=== PATIENT | female | born 1960 | race African-American/Black ===

== ENCOUNTER 2018-11-08 20:48 | Inpatient (IN) | payer OTHER ==
[2018-11-08 21:36] LABS: #Basophils 0.1 thou/uL (0.0-0.2); #Eosinphils 0.1 thou/uL (0.0-0.7); #Lymphocytes 2.1 thou/uL (1.20-3.40); #Neutrophils 10.9 thou/uL (1.40-6.50); %Basophils 0.4 % (0.0-1.0); %Eosinophils 0.4 % (0.0-10.0); %Lymphocytes 15.2 % (21.0-51.0); %Monocytes 6.8 % (0.0-10.0); %Neutrophils 77.2 % (42.0-75.0); Hemoglobin 11.4 g/dL (12.0-16.0); Mean Corpuscular HGB CONC 33.3 g/dL (32.0-36.0); Mean Corpuscular Hemoglobin 25.7 pg (27.0-31.0); Mean Corpuscular Volume 77.2 fL (78.0-98.0); Platelet Count 268 thou/uL (130-400); RBC Distribution Width 14.2 % (11.5-14.5); Red Blood Cell (RBC) Count 4.41 mill/uL (4.20-5.40); White Blood Cell (WBC) Count 14.1 thou/uL (4.8-10.8)
[2018-11-08 21:48] LABS: ALT (SGPT) 24 U/L (8-55); AST (SGOT) 78 U/L (5-34); Albumin 3.9 g/dL (3.5-5.0); Alkaline Phosphatase 91 U/L (40-110); Anion Gap 18 mmol/L (10-20); BUN (Urea Nitrogen) 19 mg/dL (9.8-20.1); Bilirubin, Total 0.4 mg/dL (0.2-1.2); Calc. Creatinine Clearance 0 mL/min (70-130); Carbon Dioxide 17 mmol/L (22-29); Chloride 107 mmol/L (98-107); Estimated GFR-MDRD 33; Globulin 2.8 g/dL (2.4-3.5); Glucose 120 mg/dL (70-105); Potassium 3.1 mmol/L (3.5-5.1); Protein, Total 6.7 g/dL (6.0-8.3); Sodium 139 mmol/L (136-145)
[2018-11-08 21:49] LABS: Acetaminophen Less than 6.0 mcg/mL (10.0-30.0); Alcohol Less than 10 mg/dL (Less than 10); Salicylate Less than 8.0 mg/dL (15.0-30.0)
[2018-11-08 21:52] LABS: Bacteria/HPF None Seen HPF (None Seen); Bilirubin Negative (Negative); Blood, Urine Negative (Negative); Clarity Clear (Clear); Glucose, Urine (Dipstick) Normal (Negative); Leukocyte Negative Leu/uL (Negative); Nitrite Negative (Negative); Protein, Urine (Dipstick) 70 mg/dL (Neg-Trace); RBC/HPF 0-3 HPF (0-3); Squamous Epithelial 0-3 HPF (0-3); WBC/HPF 0-3 HPF (0-3)
[2018-11-08 21:55] LABS: Amphetamine Not Detected (NotDetected); Barbiturates Screen Not Detected (NotDetected); Benzodiazepine Screen Not Detected (NotDetected); Cocaine Metabolite Screen Not Detected (NotDetected); Medtox Control Line Valid? VALID (VALID); Medtox Reader # READER 4; Methadone Not Detected (NotDetected); Methamphetamine Not Detected (NotDetected); Opiate Screen Not Detected (NotDetected); Oxycodone Screen Not Detected (NotDetected); Phencyclidine (PCP) Not Detected (NotDetected); THC/Cannabinoid Screen Detected (NotDetected); Tricyclic Screen Not Detected (NotDetected)
[2018-11-08] MEDS ORDERED: Ondansetron PF 4 MG/2 ML Vial ONE (22:16)
[2018-11-08] MEDS ORDERED: Potassium Chloride 20 MEQ TAB ONE (22:16)
--- NOTE | 2018-11-08 22:44 | CT ---
CT Brain WO Con HISTORY: Altered mental status. COMPARISON: 05/26/2004 study. FINDINGS: The ventricular and cisternal system shows mild atrophy. Chronic white matter changes are s een with old appearing lacunar infarct on the right. There are no signs of intracerebral hemorrhage or extra-axial fluid collections. The mastoid air cells and visualized sinuses are clear. IMPRESSION: No acute intracranial abnormalities.
[2018-11-08] MEDS ORDERED: Aspirin 300 MG Suppository ONE (22:55)
[2018-11-08 23:49] LABS: CKMB 16.5 ng/mL (0-6.6)
[2018-11-09 00:58] VITALS: BMI 24.7
--- NOTE | 2018-11-09 05:32 | PDOC.HHP ---
Hospitalist HPI - History of Present Illness Agitation, altered mental status History of Present Illness: Patient is a 58 year old female with PMH HTN, hyperlipidemia, distant stroke with residual R sided weakness who was brought to hospital by EMS for altered mental status and agitation x 2 days. She has no known psychiatric history. She was violent and combative and per family is not at her baseline. The police were required to bring her to hospital. she required a spit abdul. at time of my evaluation patient in 4 point restraints, nurse and sitter report patient is still very agitated and altered, on my exam patient denies any knowledge of what happened before now to results in her being in restraints, and wants to go home. family was reportedly worried about her sudden deterioration. In ED, CT head negative for acute findings, initial laboratory workup revealed elevated troponins. patient denies suicidal ideations, has not been diagnosed as manic or schizophrenic in the past. alert and oriented but poor judgement and insight on conversation, all recent history denies by patient and only avaiable from staff and chart review. Patient reports drinking 1-2 drinks per day normally, last drink was sunday Hospitalist ROS - Review of Systems Constitutional: denies: fever, chills Eyes: denies: vision change, conjunctivae inflammation ENT: denies: mouth swelling, throat pain Respiratory: denies: cough, shortness of breath Cardiovascular: denies: chest pain, palpitations Gastrointestinal: denies: nausea, vomiting Genitourinary: reports: frequency. denies: dysuria Musculoskeletal: denies: neck pain, shoulder pain Skin: denies: rash, lesions Neurological: denies: weakness, numbness Other: psychiatric:+agitation, +combative, +altered mental status - Medication Medications: amLODIPine SunNov 08, 2018 22:02 TERE Maldonado Julia TABLET : Strength - 10 mg : ORAL Patient Dose: 10 mg Oral once a day. aspirin SunNov 08, 2018 22:03 TERE Maldonado Julia TABLET : Strength - 325 mg : ORAL Patient Dose: 325 mg Oral once a day. atenolol SunNov 08, 2018 22:03 TERE Maldonado Julia TABLET : Strength - 50 mg : ORAL Patient Dose: 50 mg Oral once a day. atorvastatin SunNov 08, 2018 22:04 TERE Maldonado Julia TABLET : Strength - 40 mg : ORAL Patient Dose: 40 mg Oral once a day (in the evening). carvedilol SunNov 08, 2018 22:04 TERE Maldonado Julia TABLET : Strength - 12.5 mg : ORAL Patient Dose: 12.5 mg Oral 2 times a day. cloNIDine HCl SunNov 08, 2018 22:05 TERE Maldonado Julia TABLET : Strength - 0.2 mg : ORAL Patient Dose: 0.2 mg Oral 2 times a day. clopidogrel SunNov 08, 2018 22:05 TERE Maldonado Julia TABLET : Strength - 75 mg : ORAL Patient Dose: 75 mg Oral once a day. folic acid SunNov 08, 2018 22:06 TERE Maldonado Julia TABLET : Strength - 1 mg : ORAL Patient Dose: 1 mg Oral once a day. gabapentin SunNov 08, 2018 22:06 TERE Maldonado Julia CAPSULE : Strength - 300 mg : ORAL Patient Dose: 900 mg Oral once a day (in the evening). hydrochlorothiazide SunNov 08, 2018 22:07 TERE Maldonado Julia TABLET : Strength - 25 mg : ORAL Patient Dose: 25 mg Oral once a day. lisinopril SunNov 08, 2018 22:07 TERE Maldonado Julia TABLET : Strength - 40 mg : ORAL Patient Dose: 40 mg Oral once a day. methylPREDNISolone SunNov 08, 2018 22:08 TERE Maldonado Julia TABLET : Strength - 4 mg : ORAL Patient Dose: 4 mg Oral once a day. multivitamin SunNov 08, 2018 22:09 TERE Maldonado Julia TABLET : ORAL Patient Dose: 1 tab(s) Oral once a day. omeprazole SunNov 08, 2018 22:09 TERE Maldonado Julia CAPSULE,DELAYED RELEASE ( ENTERIC COATED) : Strength - 20 mg : ORAL Patient Dose: 20 mg Oral once a day. pravastatin SunNov 08, 2018 22:09 TERE Maldonado Julia TABLET : Strength - 80 mg : ORAL Patient Dose: 80 mg Oral once a day. traMADol SunNov 08, 2018 22:10 TERE Maldonado Julia TABLET : Strength - 50 mg : ORAL Patient Dose: 50 mg Oral every 8 hours PRN. Hospitalist History - Past Medical History Other Medical History: HTN HLD stroke - Past Surgical History Past Surgical History: reports: no pertinent history - Family History Family History: reports: no pertinent history - Social History Smoking Status: Never smoker Alcohol: reports: Heavy (1-2 drinks per day, last drink sunday) Drugs: reports: none - Exam General Appearance: NAD (agitated, in restraints) Eye: PERRL, anicteric sclera ENT: normocephalic atraumatic, no oropharyngeal lesions, moist mucosa Neck: supple, symmetric, no JVD, no thyromegaly, no lymphadenopathy, no carotid bruit Heart: RRR, no murmur, no gallops, no rubs, normal peripheral pulses Respiratory: CTAB, no wheezes, no rales, no ronchi, normal chest expansion, no tachypnea, normal percussion Gastrointestinal: soft, non-tender, non-distended, normal bowel sounds, no palpable masses, no hepatomegaly, no splenomegaly, no bruit Extremities: no cyanosis, no clubbing, no edema Skin: normal turgor, no lesions, no rashes Neurological: cranial nerve grossly intact Musculoskeletal: normal tone, normal strength, no muscle wasting Psychiatric - other findings: agitated, anxious, poor judgement, poor insight, violent Hospitalist Results - Labs Result Diagrams: 11/08/18 21:21 11/08/18 21:21 Lab results: WBC 14.1 thou/uL (4.8-10.8) H 11/08/18 21:21 Hgb 11.4 g/dL (12.0-16.0) L 11/08/18 21:21 Hct 34.1 % (36.0-47.0) L 11/08/18 21:21 MCV 77.2 fL (78.0-98.0) L 11/08/18 21:21 Plt Count 268 thou/uL (130-400) 11/08/18 21:21 Neutrophils % 77.2 % (42.0-75.0) H 11/08/18 21:21 Sodium 139 mmol/L (136-145) 11/08/18 21:21 Potassium 3.1 mmol/L (3.5-5.1) L 11/08/18 21:21 Chloride 107 mmol/L (98-107) 11/08/18 21:21 Carbon Dioxide 17 mmol/L (22-29) L 11/08/18 21:21 BUN 19 mg/dL (9.8-20.1) 11/08/18 21:21 Creatinine 1.89 mg/dL (0.6-1.1) H 11/08/18 21:21 Glucose 120 mg/dL (70-105) H 11/08/18 21:21 Calcium 10.0 mg/dL (7.8-10.44) 11/08/18 21:21 Total Bilirubin 0.4 mg/dL (0.2-1.2) 11/08/18 21:21 AST 78 U/L (5-34) H 11/08/18 21:21 ALT 24 U/L (8-55) 11/08/18 21:21 Alkaline Phosphatase 91 U/L (40-110) 11/08/18 21:21 CK-MB (CK-2) 16.5 ng/mL (0-6.6) H* 11/08/18 21:21 Troponin I 0.043 ng/mL (< 0.028) H 11/08/18 21:21 Serum Total Protein 6.7 g/dL (6.0-8.3) 11/08/18 21:21 Albumin 3.9 g/dL (3.5-5.0) 11/08/18 21:21 Urine Ketones 10 mg/dL (Negative) A 11/08/18 21:34 Urine Blood Negative (Negative) 11/08/18 21:34 Urine Nitrite Negative (Negative) 11/08/18 21:34 Ur Leukocyte Esterase Negative Kevyn/uL (Negative) 11/08/18 21:34 Urine RBC 0-3 HPF (0-3) 11/08/18 21:34 Urine WBC 0-3 HPF (0-3) 11/08/18 21:34 Ur Squamous Epith Cells 0-3 HPF (0-3) 11/08/18 21:34 Urine Bacteria None Seen HPF (None Seen) 11/08/18 21:34 Additional comment: VITAL SIGNS Sat Nov 09, 2018 00:05 TERE Altman, [place] BP: 129/101, Pulse: 107, Resp: 25, Temp: 97.8, Pain: 0, O2 sat: 100 on RA, Time: 11/09/2018 00:05. Hospitalist H&P A/P - Problem (1) Agitation Status: Acute (2) Le Status: Acute (3) History of alcohol use Code(s): Z87.898 - PERSONAL HISTORY OF OTHER SPECIFIED CONDITIONS Status: Acute (4) HTN (hypertension) Code(s): I10 - ESSENTIAL (PRIMARY) HYPERTENSION Status: Acute (5) History of stroke Code(s): Z86.73 - PRSNL HX OF TIA (TIA), AND CEREB INFRC W/O RESID DEFICITS Status: Acute (6) Elevated troponin Code(s): R74.8 - ABNORMAL LEVELS OF OTHER SERUM ENZYMES Status: Acute - Plan Plan: Patient is a 58 year old female with PMH HTN, hyperlipidemia, distant stroke with residual R sided weakness who was brought to hospital by EMS for altered mental status and agitation x 2 days. # agitation/altered mental status - out of character and has never happened before per nursing discussion with family - CT head reviewed, no acute IC abnormalities - ER workup reviewed and nonrevealing, ordered UA, UDS - haldol/ativan PRN agitation - may be related to alcohol abuse and withdrawal, favor ativan use in case this is the issue - case management consult in case psychiatric disposition required. continue restraints and sitter # elevated troponin - trend troponins - consult cardiology in AM # leukocytosis - follow urine drug screen, monitor closely for causes of these symptoms # elevtated Cr - encourage PO intake, patient dry on exam. trend BMP - consider nephrology consult if no other explanation can be easily found # HTN - resume home meds once med rec complete # HLD - resume home meds once med rec complete # history of stroke - resume home meds once med rec complete
[2018-11-09] MEDS ORDERED: Acetaminophen 325 MG TAB PO PRN (05:37)
[2018-11-09] MEDS ORDERED: Senokot S 8.6-50 MG TAB PO PRN (05:37)
[2018-11-09] MEDS ORDERED: Ondansetron PF 4 MG/2 ML Vial IVP PRN (05:37)
[2018-11-09] MEDS ORDERED: Bisacodyl 10 MG SUPP PR PRN (05:37)
[2018-11-09] MEDS ORDERED: Bisacodyl 5 MG TAB PO PRN (05:37)
[2018-11-09] MEDS ORDERED: Haloperidol Lactate 5 MG/ML VIAL IM PRN (05:42)
[2018-11-09 06:49] LABS: Troponin I 0.044 ng/mL (< 0.028)
[2018-11-09 06:51] LABS: CKMB 15.6 ng/mL (0-6.6)
[2018-11-09] MEDS: Enoxaparin Sodium 40 MG/0.4 ML SYRINGE SC SCH (08:48)
[2018-11-09] MEDS: Famotidine 20 MG TAB PO SCH ×2 (08:49→20:27)
[2018-11-09] MEDS: Lorazepam 2 MG/ML VIAL SLOW IVP PRN ×2 (08:52→16:36)
[2018-11-09 10:28] LABS: Troponin I 0.069 ng/mL (< 0.028)
[2018-11-10] MEDS ORDERED: hydrALAZINE 20 MG/ML VIAL SLOW IVP SCH (01:15)
[2018-11-10] MEDS: Lorazepam 2 MG/ML VIAL SLOW IVP PRN (01:18)
[2018-11-10 06:45] LABS: Anion Gap 21 mmol/L (10-20); BUN (Urea Nitrogen) 13 mg/dL (9.8-20.1); Calc. Creatinine Clearance 51 mL/min (70-130); Calcium 10.8 mg/dL (7.8-10.44); Carbon Dioxide 16 mmol/L (22-29); Chloride 108 mmol/L (98-107); Estimated GFR-MDRD 59; Glucose 75 mg/dL (70-105); Potassium 3.7 mmol/L (3.5-5.1); Sodium 141 mmol/L (136-145)
[2018-11-10 07:50] LABS: Hemoglobin 13.5 g/dL (12.0-16.0); Lymphocytes 18 % (21-51); MDiff Complete? YES; Mean Corpuscular HGB CONC 33.3 g/dL (32.0-36.0); Mean Corpuscular Hemoglobin 25.7 pg (27.0-31.0); Mean Corpuscular Volume 77.3 fL (78.0-98.0); Mean Platelet Volume 10.3 fL (7.4-10.4); Monocytes 5 % (0-10); Neutrophil 76 % (42-75); Platelet Count 293 thou/uL (130-400); RBC Distribution Width 14.6 % (11.5-14.5); Red Blood Cell (RBC) Count 5.27 mill/uL (4.20-5.40); White Blood Cell (WBC) Count 15.2 thou/uL (4.8-10.8)
[2018-11-10] MEDS: Famotidine 20 MG TAB PO SCH ×2 (07:58→21:09)
[2018-11-10] MEDS: Enoxaparin Sodium 40 MG/0.4 ML SYRINGE SC SCH (07:58)
--- NOTE | 2018-11-10 13:09 | PDOC.HOSPP ---
- Subjective Encounter Date: 11/10/18 Encounter Time: 13:00 Subjective: f/u for severe delirium, combativeness, AMS in restraints. UDS with cannabis. States she feels fine and wants to go home. Feels like she was forced to come to the hospital and people in her family were trying to sabotage her. - Objective Vital Signs & Weight: Vital Signs (12 hours) Temp Pulse Pulse Resp BP BP BP 11/10/18 11:42 98 F 103 H 16 181/83 H 11/10/18 09:50 162/85 H 11/10/18 09:45 123 H 162/85 H 179/92 H 11/10/18 07:59 181/94 H 11/10/18 07:41 97.8 F 112 H 16 192/98 H 11/10/18 04:00 98.8 F 105 H 20 165/86 H 11/10/18 01:51 103 H 11/10/18 01:49 103 H 174/72 H 11/10/18 01:05 99.6 F 111 H 22 H 196/94 H Pulse Ox 11/10/18 11:42 98 11/10/18 09:50 11/10/18 09:45 11/10/18 07:59 11/10/18 07:41 99 11/10/18 04:00 100 11/10/18 01:51 11/10/18 01:49 11/10/18 01:05 99 Weight Admit Weight 135 lb Weight 135 lb I&O: 11/09/18 11/10/18 11/11/18 06:59 06:59 06:59 Intake Total 0 250 Output Total 450 550 Balance -450 -300 Result Diagrams: 11/10/18 05:59 11/10/18 05:59 Additional Labs: Laboratory Tests 11/08/18 11/08/18 11/08/18 21:21 21:21 21:21 WBC 14.1 H Carbon Dioxide 17 L Creatinine 1.89 H Calcium 10.0 Ammonia TSH 3rd Generation 0.9039 U Cannabinoids Screen 11/08/18 11/09/18 21:34 06:24 WBC Carbon Dioxide Creatinine Calcium Ammonia 23 TSH 3rd Generation U Cannabinoids Screen Detected H Radiology Reviewed by me: Yes (CT brain - no acute process) EKG Reviewed by me: Yes (Tele - SR) Hospitalist ROS - Medication Medications: Active Medications Generic Name Dose Route Start Last Admin Trade Name Freq PRN Reason Stop Dose Admin Enoxaparin Sodium 40 mg 11/09/18 09:00 11/10/18 07:58 Lovenox SC Not Given 0900 MARY Famotidine 20 mg 11/09/18 09:00 11/10/18 07:58 Pepcid PO Not Given BID MARY Lorazepam 1 mg 11/09/18 05:45 11/10/18 01:18 Ativan SLOW IVP 1 mg Q4H PRN Administration Anxiety/Agitation Sodium Chloride 10 ml 11/09/18 09:00 11/10/18 07:58 Flush - Normal Saline IVF Not Given Q12HR MARY - Exam General Appearance: NAD, awake alert Eye: PERRL, anicteric sclera ENT: normocephalic atraumatic, no oropharyngeal lesions Neck: supple, symmetric, no JVD, no thyromegaly, no lymphadenopathy Heart: RRR, no murmur, no gallops, no rubs, normal peripheral pulses Respiratory: CTAB, no wheezes, no rales, no ronchi, normal chest expansion Gastrointestinal: soft, non-tender, non-distended, normal bowel sounds Extremities: no cyanosis, no clubbing, no edema Skin: normal turgor, no lesions Neurological: cranial nerve grossly intact, no focal deficits, no new deficit Musculoskeletal: normal tone, normal strength Psychiatric: normal affect, A&O x 3 Hosp A/P (1) Acute delirium Code(s): R41.0 - DISORIENTATION, UNSPECIFIED Status: Acute Plan: Likely due to THC with potential effect of other contaminants in the product, improved currently (2) Cannabis abuse Code(s): F12.10 - CANNABIS ABUSE, UNCOMPLICATED Status: Acute Plan: Cessation resources (3) KIMBERLEE (acute kidney injury) Code(s): N17.9 - ACUTE KIDNEY FAILURE, UNSPECIFIED Status: Acute Plan: Improved, avoid nephrotoxic meds and limit contrast exposure (4) HTN (hypertension) Code(s): I10 - ESSENTIAL (PRIMARY) HYPERTENSION Status: Chronic Qualifiers: Hypertension type: essential hypertension Qualified Code(s): I10 - Essential (primary) hypertension Plan: Resume home BP regimen, serial monitoring (5) Le Status: Acute Plan: See above, improved - Plan social work assistant, DVT proph w/SCDs Stable currently Medically stable Consult [facility] today D/C all restraints Sitter 1:1 Await recommendations regarding disposition from [facility]
[2018-11-10] MEDS ORDERED: Valsartan 80 MG TAB PO SCH (14:15)
[2018-11-10] MEDS ORDERED: Amlodipine 10 MG TAB PO SCH (14:15)
[2018-11-10] MEDS ORDERED: Gabapentin 300 MG CAP PO SCH (21:00)
[2018-11-10] MEDS: Carvedilol 25 MG TAB PO SCH (21:07)
[2018-11-10] MEDS: cloNIDine 0.2 MG TAB PO SCH (21:08)
[2018-11-11] MEDS: Carvedilol 25 MG TAB PO SCH (08:52)
[2018-11-11] MEDS: cloNIDine 0.2 MG TAB PO SCH (08:54)
[2018-11-11] MEDS: Famotidine 20 MG TAB PO SCH (08:56)
[2018-11-11] MEDS: Enoxaparin Sodium 40 MG/0.4 ML SYRINGE SC SCH (08:56)
[2018-11-11] MEDS ORDERED: Amlodipine 10 MG TAB PO SCH (09:00)
[2018-11-11] MEDS ORDERED: Valsartan 80 MG TAB PO SCH (09:00)
[2018-11-11 15:43] VITALS: BP 179/105; TEMP 98.8
--- NOTE | 2018-11-12 03:58 | DIS ---
DATE OF ADMISSION: 11/08/2018 DATE OF DISCHARGE: 11/11/2018 DISCHARGE DIAGNOSES: 1. Acute delirium, multifactorial. 2. Cannabis abuse. 3. Acute kidney injury, improved. 4. Hypertension, labile. 5. Acute alina. CONSULTATIONS: [facility]. PERTINENT LABORATORY DATA AND X-RAY FINDINGS: Creatinine ranged between 1.14 to 1.89. Estimated GFR ranged between 33 to 59. AST 78, ALT 24, alkaline phosphatase 91. Troponin I ranged between 0.043 to 0.069. TSH 0.90. CBC showed a white blood cell count ranging between 14.1 to 15.2, hemoglobin 13.5. Urine drug screen dated 11/08/2018 positive for cannabinoids. Plasma alcohol level less than 10. CT of the brain without contrast dated 11/08/2018 showed no acute intracranial process. HOSPITAL COURSE: The patient was admitted to the telemetry unit after initially presenting with acute delirium, agitation, combativeness and alina. The patient was initially placed in mechanical restraints. In addition, was treated with chemical restraints with Ativan. CT imaging of the brain was performed showing no acute process. Metabolic screening was essentially unremarkable except for urine drug screen showing evidence of cannabis. The patient was exhibiting evidence of poor judgment and insight and remained combative requiring a spit abdul during initial evaluation. The patient's mental status had improved with general supportive management, but remained delirious, confused, and stating she wanted to return home. The patient was evaluated by the [facility] Service and deemed an appropriate candidate for ongoing inpatient psychiatric care. The patient was approved to transfer to [facility] on 11/11/2018. I have examined the patient at the time of discharge and discussed followup instructions. The patient is stable and ready for discharge on 11/11/2018. DISCHARGE MEDICATIONS: 1. Amlodipine 10 mg p.o. daily. 2. Coreg 12.5 mg p.o. b.i.d. 3. Clonidine 0.2 mg p.o. b.i.d. 4. Gabapentin 300 mg 3 capsules p.o. at bedtime. 5. Pravachol 40 mg p.o. at bedtime. 6. Diovan 320 mg p.o. daily. FOLLOWUP: The patient may follow up with her primary care provider, Dr. oRbert Schmitz after discharge from inpatient psychiatric care. CONDITION ON DISCHARGE: Fair. ACTIVITY: Ad-jose. DIET: Heart healthy. CODE STATUS: Full code. DISPOSITION: Discharged to [facility] on 11/11/2018. TIME SPENT: Total time preparing and coordinating discharge is 33 minutes. Job ID: [id number]
--- NOTE | 2018-11-13 01:46 | PQF ---
[employer] Maintenance Assistant Crystal Reports Winform Viewer ROSA ELENA TITA MARCO ANTONIOCLYDE DO [id number] CLINICAL DOCUMENTATION CLARIFICATION FORM: POST DISCHARGE Addendum to original discharge summary date: ____ Late entry note date: __ DATE: 11/13/18 ATTN: Clyde Sweet Please exercise your independent, professional judgment in responding to the clarification form. Clinical indicators are provided on the bottom of this form for your review Can you please further specify the etiology of Delirium based on the clinical indicators below? Please check appropriate box(s): [ ] Delirium due to alina [ x ] Delirium due to to cannabis abuse [ ] Delirium due to alcohol withdrawal [ ] Other diagnosis please specify [ ] Unable to determine In addition, please specify: Present on Admission (POA): [ x ] Yes [ ] No [ ] Unable to determine For continuity of documentation, please document condition throughout progress notes and discharge summary. Thank You. CLINICAL INDICATORS - SIGNS / SYMPTOMS / LABS H&P pg6 11/09 Dr. Moser- agitation/altered mental status out of character. May be related to alcohol abuse and withdrawal, favor Ativan use in case this is the issue PN pg4 11/10 Dr. Calhoun- Acute delirium likely due to THC with potential effect of other contaminants in the product DS pg1 11/11 Dr. Calhoun- Metabolic screening was essentially unremarkable except for urine drug screen showing evidence of cannabis DS pg1 11/11 Dr. Calhoun- presenting with acute delirium, agitation, combativeness and alina RISK FACTORS Cannabis abuse- DS 11/11 Dr. Calhoun stroke with residual R sided weakness- H&P 11/09 Dr. Moser Alcohol abuse- H&P 11/09 Dr. Moser Acute Kidney injury-DS 11/11 Dr. Calhoun TREATMENTS: Transfer to [facility]- DS 11/11 Dr. Calhoun Physical restraints-DS 11/11 Dr. Calhoun IV Fluids- MAR /27 (This form is maintained as a part of the permanent medical record) 2014 [email or web address] All Rights Reserved Kameron [email or web address] [not provided] [email or web address]
== END 2018-11-11 16:50 | disposition short-term general hospital (02) | DRG 918 ==
LOC: ERS 20:48 → OBSVTOIN 22:50 → 2SE 22:50
PROVIDERS: ADMIT Internal Medicine; ATTEND Internal Medicine
DX: T40.7X1A Poisoning by cannabis (derivatives), accidental (unintentional), initial encounter (principal); F30.9 Manic episode, unspecified; N17.9 Acute kidney failure, unspecified; R41.0 Disorientation, unspecified; F12.188 Cannabis abuse with other cannabis-induced disorder; F12.10 Cannabis abuse, uncomplicated; I10 Essential (primary) hypertension; E78.5 Hyperlipidemia, unspecified; F10.10 Alcohol abuse, uncomplicated; I69.361 Other paralytic syndrome following cerebral infarction affecting right dominant side; Z78.1 Physical restraint status
CPT/HCPCS: 36415; 70450; 80048; 80053; 80306; 80307; 81003; 81015; 82140; 82553; 84443; 84484; 85025; 94760; A4353; J0360; J1650; J2060; J2405